=== PATIENT | female | born 1965 | race Caucasian/White ===

== ENCOUNTER 2025-02-06 10:21 | Day surgery (SDC) | payer OTHER ==
[~2025-02-06 10:21] MED LIST: ROSUVASTATIN CA10 MG PO
[2025-02-06] MEDS ORDERED: METRONIDAZOLE/SODIUM CHLORIDE 500 MG/100 ML PIGGYBACK IV ONE (12:38)
[2025-02-06] MEDS ORDERED: CEFTRIAXONE SODIUM 2,000 MG VIAL ONE (12:38)
[2025-02-06] MEDS ORDERED: DIBUCAINE 30 GM TUBE ONE (13:06)
[2025-02-06] MEDS ORDERED: BUPIVACAINE HCL/MPF 0.5% 30ML VIAL ONE (13:06)
[2025-02-06] MEDS ORDERED: POVIDONE-IODINE 118 ML BOTT TOP ONE (13:06)
[2025-02-06] MEDS ORDERED: LIDOCAINE HCL 1%/EPINEPHRINE 20ML VIAL IJ ONE (13:07)
[2025-02-06] MEDS ORDERED: HEMOSTATIC MATRIX 1 KIT KIT TOP ONE (13:52)
== END 2025-02-06 20:35 | disposition home or self-care (01) ==
LOC: CIR.AMB 10:21
PROVIDERS: ATTEND Colon & Rectal Surgery
DX: K64.2 Third degree hemorrhoids (principal); K64.4 Residual hemorrhoidal skin tags